=== PATIENT | male | born 1950 | race Caucasian/White ===

== ENCOUNTER 2018-02-03 06:06 | Day surgery (SDC) | payer OTHER ==
[2018-02-03] MEDS ORDERED: FENTAnyl 50 MCG/ML VIAL (07:34)
[2018-02-03] MEDS ORDERED: PROPOFOL 20 ML (07:34)
[2018-02-03] MEDS ORDERED: MIDAZOLAM 1 MG/ML 2 ML INJ (07:35)
== END 2018-02-03 13:46 | disposition home or self-care (01) ==
LOC: GIL 06:06
DX: D12.6 Benign neoplasm of colon, unspecified (principal); K64.8 Other hemorrhoids; I10 Essential (primary) hypertension; E78.5 Hyperlipidemia, unspecified
CPT/HCPCS: 45380; 88305